=== PATIENT | male | born 1960 | race Caucasian/White ===

== ENCOUNTER 2017-05-30 11:43 | Inpatient (IN) | payer MEDICARE ==
[~2017-05-30] VITALS: Ht 185.4 cm; Wt 69.9 kg
[2017-05-30] VITALS (7 sets, daily range): BP systolic 122–154; BP diastolic 68–88
--- NOTE | ~2017-05-30 | CON ---
[place], [place] REPORT OF CONSULTATION NAME: TALITA REYNOLDS UNIT #: [id number] ROOM: 515 DOCTOR: SMITH RINGMEEDARRELL BIRTHDATE: [birth year] DOS: 05/30/2017 REQUESTING PHYSICIAN: Yovany Simon INDICATION: Chest pain. REASON FOR CONSULTATION: Chest pain. ASSESSMENT: 1. Current presentation with chest pain, sharp, left-sided. 2. Worsening chest pain with deep inspiration and position. 3. No relation to activity. No improvement with nitroglycerin patch. 4. Similar pleuritic chest pain 20 years ago. 5. Active tobacco abuse. 6. Unknown level of lipid. PLAN: 1. Cycle cardiac enzymes. 2. Check sed rate. 3. CRP. 4. Echocardiogram. 5. Stress test in a.m. 6. Toradol 50 mg 1 IV q. 12 hours x 2 doses only. 7. Indocin 25 mg b.i.d. for 2 doses. 8. Colchicine 0.6 mg daily. 9. Smoking cessation. HISTORY OF PRESENT ILLNESS: The patient is a pleasant 56-year-old gentleman unknown to our practice, was referred by Dr. Pedroza for further evaluation of complaint of chest pain. Apparently, the patient woke up with the chest pain, left-sided, sharp, radiating to the left arm, worse with lying completely flat and taking a deep breath. The patient presented after the pain lingered on all day. Finally, the patient's pain got worse with mainly with lying on his right side and presented to the Emergency Room. Nitroglycerin patch was put in and since then there is no change with the intensity of this pain. It is rated almost 7/10. This patient did have some nausea, but no vomiting or diaphoresis. Never had such complaint recently. He is active, able to walk few miles without any provoked cardiac complaints. Never had any symptomatic palpitation or any associated dizziness, lightheadedness or near syncope. No fever. No chills. No night sweats. No recent upper respiratory infection. He sleeps on one pillow with no reported PND, orthopnea or pedal edema. The patient maintains good appetite. No recent weight loss. PAST MEDICAL HISTORY: As detailed in my assessment. SOCIAL HISTORY: The patient continues to smoke, has been doing this for the past 37 years. No heavy alcohol. The patient admits to marijuana abuse. FAMILY HISTORY: The patient's father at age 65 of liver cancer. His mother is still alive at age 78. He has 2 brothers and 2 sisters with no [place], [place] REPORT OF CONSULTATION NAME: TALITA REYNOLDS UNIT #: [id number] ROOM: [facility] DOCTOR: VERN MTZ MD BIRTHDATE: [birth year] reported heart problems. CURRENT MEDICATIONS: [id number], Lovenox, Restoril, Zofran, Dulcolax, Sula, Tylenol, and aspirin. ALLERGIES: The patient has no known drug allergies. REVIEW OF SYSTEMS: Currently, the patient denies any headache, diplopia or blurry vision. No fever. No chills, No night sweats, No abdominal pain. No bright red blood per rectum or tarry stools. The patient admits to joint pain. No , muscular pain. No anxiety. No depression. No polyuria, No polydipsia. No skin rash. Review of all other systems has been negative. PHYSICAL EXAMINATION: GENERAL: The patient alert, oriented x 3, quite pleasant. VITAL SIGNS: Blood pressure 136/86, heart rate 69, respiratory rate of 16, temperature 97.4. HEENT: Extraocular muscle intact. Pupils equal, round, reactive to light. Conjunctivae: No pallor. Throat: No petechiae. NECK: Good carotid upstroke. Unable to appreciate any bruit. No lymphadenopathy. No thyromegaly. HEART: S1, S2 with a faint holosystolic murmur at the left upper sternal border. No rub or sternal heave. CHEST AND BACK: No deformities. LUNGS: Clear to auscultation. Good air movement. No wheezing or rales. ABDOMEN: Soft, nontender, present bowel sounds. No masses. No bruits. EXTREMITIES: Lower extremities, no edema with faint distal pulses. NEUROLOGIC: Grossly nonfocal. SKIN: No significant rash. LABORATORY DATA: White count 8.1, hemoglobin 15.3. Potassium is 3.7, GFR more than 60%, glucose 119. Normal liver function tests. Troponin less than 0.01. VERN MTZ MD CM:CONSTR:REPORT OF CONSULTATION 1735 05/31/17 1914 interface
--- NOTE | ~2017-05-30 | ST ---
[place], [place] EXERCISE STRESS TEST REPORT NAME: [facility]ALITA REYNOLDS [id number] UNIT #: [id number] ROOM: [facility] DOCTOR: VERN MTZ MD BIRTHDATE: [birth year] DOS: 05/31/2017 REQUESTING PHYSICIAN: Dr. Willams INDICATION: Chest pain. PROCEDURE: The patient was brought into the stress lab. The procedure was explained with risks, benefits, and alternatives. Lexiscan was injected. The patient tolerated procedure well. BLOOD PRESSURE RESPONSE: Resting blood pressure 128/82 with ending blood pressure 152/84. ELECTROCARDIOGRAM INTERPRETATION: Resting electrocardiogram showing normal sinus rhythm, heart rate of 83, RSR prime in V1 and V2 with criteria for left atrial enlargement. At the peak of the stress test, there was no evidence of any significant ST or T-wave changes suggestive of myocardial ischemia. No arrhythmias were noted. SUMMARY: 1. Adequate stress test. 2. Negative stress test for stress induced myocardial ischemia. 3. No arrhythmias were noted. 4. Myoview results will be reported separately. VERN MTZ MD CM:STRESS:EXERCISE STRESS TEST REPORT [id number] VERN MTZ MD
--- NOTE | ~2017-05-30 | PR ---
[place], [place] PROGRESS NOTE [id number] UNIT #: [id number] ROOM: 515 DOCTOR: VERN MTZ MD BIRTHDATE: [birth year] DOS: 05/31/2017 SUBJECTIVE: The patient is in the stress lab, just underwent a Lexiscan stress test. There appears significant improvement of this patient's chest pain with Toradol and Indocin. The patient has had significant recurrence this morning, but improved again with medication. No symptomatic palpitation. OBJECTIVE: VITAL SIGNS: Blood pressure 116/74, heart rate 73, respiration rate of 14, temperature 97.5. NECK: Good upstroke, no bruit. HEART: S1, S2 with no rub. LUNGS: Decreased air movement, but no wheezing, no rales. ABDOMEN: Soft, nontender, present bowel sounds. EXTREMITIES: Lower extremities, no edema. LABORATORY DATA: White count 6.3, hemoglobin 15.0. There is no left shift. Potassium 3.9, creatinine 0.7, GFR more than 60. Normal liver function tests. Troponin less than 0.015. C-reactive protein is 0.51. Normal thyroid function test. Sed rate reported . ASSESSMENT AND PLAN: Current presentation with chest pain that has some pleuritic component, even though we cannot rule out the possibility of coronary artery disease. The patient is a longtime smoker a stress test was performed this morning, we are awaiting the results. In the meantime, we will continue with Indocin/colchicine. I will check the echocardiogram and I plan to see the patient in 1 week as an outpatient. Indocin should be continued between 7-10 days only as an outpatient and colchicine will be considered for 3 months. The patient can be discharged if the nuclear images were within normal limits. VERN MTZ MD CM:PNJACQUE [id number] VERN MTZ MD 05/31/17 1915 interface
[~2017-05-30 11:43] MED LIST: VICODIN ES 7501 TAB PO
[2017-05-30 11:59] LABS: BASO % 0.4 % (0.0-1.0); EOS # 0.1 10*3/uL (0.0-0.4); EOS % 1.4 % (1.0-4.0); HEMATOCRIT 44.8 % (42.0-52.0); HEMOGLOBIN 15.3 g/dl (14.0-18.0); MEAN CELL VOLUME 93.7 fl (80.0-94.0); MEAN CORPUSCULAR HGB CONC 34.2 g/dl (33.0-37.0); MEAN PLATELET VOLUME 9.3 fl (9.6-12.3); MONO # 0.5 10*3/uL (0.1-1.0); MONO % 6.6 % (3.0-9.0); NEUT # 5.5 10*3/uL (2.3-7.9); NEUT % 67.2 % (47.0-73.0); PLATELET COUNT AUTOMATED 206 10*3/uL (130-400); RED BLOOD COUNT 4.78 10*6/uL (4.50-5.90); WHITE BLOOD COUNT 8.1 10*3/uL (4.8-10.8)
[2017-05-30 12:08] LABS: ACT PARTIAL THROMBO TIME 25.1 SECONDS (20.8-31.5)
--- NOTE | 2017-05-30 12:14 | NUR ---
PT RESTING NOW,VS ARE STABLE. HE HAS BEEN MEDICATED WITH TOPICAL NITRO PASTE FOR CO MID STERNAL CHEST PAIN. HORACIO DEVRIES
[2017-05-30 12:17] LABS: ALKALINE PHOSPHATASE 91 U/L (45-117); BUN 11 mg/dl (7-24); CHLORIDE 104 mmol/L (98-107); CREATININE 0.87 mg/dL (0.70-1.30); POTASSIUM 3.7 mmol/L (3.5-5.1); SGOT/AST 18 IU/L (3-35); SGPT/ALT 17 U/L (12-78); SODIUM 140 mmol/L (136-145)
[2017-05-30 12:20] LABS: TROPONIN I < 0.015 ng/ml (<0.045)
--- NOTE | 2017-05-30 12:59 | NUR ---
PT HAS NO RELIEF IN CHEST PAIN,NO RELIEF FROM NITRO PASTE. RATES PAIN AT A 7 NOW. NO DISTRESS NOTED. VS REMAIN STABLE. HORACIO DEVRIES
--- NOTE | 2017-05-30 14:30 | NUR ---
A 56, admitted to , under the services of PATI Griggs DO with a diagnosis of CHEST PAIN. Chief complaint is CHEST PAIN. Patient arrived via bed from ER. Monitor applied. Initial assessment completed. Vital signs taken and recorded. PATI GRIGGS DO notified of admission to the unit. Orders received. See assessment for past medical history, medications and allergies. Patient and/or family oriented to unit. [facility] visitation policy reviewed. Clothing/patient valuable form completed. DESHAWN NANCE
--- NOTE | 2017-05-30 15:39 | NUR ---
CALLED DR. FONTANA OFFICE THEY WILL NOTIFY HIM OF CONSULT.
--- NOTE | 2017-05-30 16:30 | NUR ---
PT RESTING IN BED STATES DOCTORS WHERE IN TO SEE HIM. AWARE STRESS TEST IN AM NO C/O AT THIS TIME. DENIES ANY NEED FOR ANY MEDICATIONS AT THIS TIME. CALL LIGHT IN REACH.
--- NOTE | 2017-05-30 17:56 | NUR ---
PT COMPLAINING OF MIDSTERNAL CHEST PAIN, RATES PAIN 7 ON PAIN SCALE 0-10. MEDICATED WITH TORADOL IV PER PRN ORDER, SEE EMAR. CALL LIGHT IN REACH.
--- NOTE | 2017-05-30 21:10 | NUR ---
PATIENT RESTING IN BED. STATES HIS MIDSTERNAL CHEST PAIN IS BETTER THAN IT WAS EARLIER. HE RATES IT A 3/10 AND SAYS EARLIER IT WAS A 7/10. HE IS PLEASANT/COOPERATIVE WITH CARE. CALL LIGHT IS IN REACH. WILL MONITOR.
[2017-05-31] VITALS: BP 117/58
--- NOTE | 2017-05-31 01:57 | NUR ---
PATIENT SLEEPING ON LEFT SIDE. RESPIRATIONS EASY/REG. NO SXS OF DISTRESS. CALL LIGHT IS IN REACH.
--- NOTE | 2017-05-31 02:54 | NUR ---
24 HOUR CHART CHECK COMPLETE
--- NOTE | 2017-05-31 04:12 | NUR ---
PATIENT SLEEPING ON RIGHT SIDE. RESPIRATIONS EASY/REG. NO SXS OF DISTRESS. CALL LIGHT IN REACH.
[2017-05-31 07:04] LABS: BASO % 0.3 % (0.0-1.0); EOS # 0.1 10*3/uL (0.0-0.4); EOS % 1.4 % (1.0-4.0); HEMATOCRIT 43.2 % (42.0-52.0); LYMPH # 1.6 10*3/uL (1.3-4.4); LYMPH % 25.7 % (27.0-41.0); MEAN CELL VOLUME 92.5 fl (80.0-94.0); MEAN CORPUSCULAR HGB 32.1 pg (27.0-31.0); MEAN CORPUSCULAR HGB CONC 34.7 g/dl (33.0-37.0); MEAN PLATELET VOLUME 9.7 fl (9.6-12.3); MONO # 0.6 10*3/uL (0.1-1.0); MONO % 8.7 % (3.0-9.0); NEUT % 63.7 % (47.0-73.0); PLATELET COUNT AUTOMATED 204 10*3/uL (130-400); RED BLOOD COUNT 4.67 10*6/uL (4.50-5.90); RED CELL DISTRI WIDTH 13.1 % (0-14.5); WHITE BLOOD COUNT 6.3 10*3/uL (4.8-10.8)
[2017-05-31 07:30] LABS: ALBUMIN 3.7 gm/dl (3.1-4.5); ALKALINE PHOSPHATASE 86 U/L (45-117); BUN 14 mg/dl (7-24); CHLORIDE 105 mmol/L (98-107); CHOLESTEROL 188 mg/dL (<200); CREATININE 0.71 mg/dL (0.70-1.30); HDL CHOLESTEROL 49 mg/dl (40-60); LDL CHOLESTEROL 122 mg/dL (9-159); POTASSIUM 3.9 mmol/L (3.5-5.1); SGOT/AST 21 IU/L (3-35); SGPT/ALT 17 U/L (12-78); SODIUM 138 mmol/L (136-145); TOTAL PROTEIN 7.5 gm/dL (6.4-8.2); TRIGLYCERIDES 83 mg/dl (<150); VLDL CHOLESTEROL 17 mg/dL (6-40)
[2017-05-31 07:31] LABS: FREE T4 1.18 ng/dl (0.76-1.46)
--- NOTE | 2017-05-31 07:43 | NUR ---
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
[2017-05-31 08:00] VITALS: BP 116/74
--- NOTE | 2017-05-31 08:15 | NUR ---
PT RESTING IN BED. RESP-EASY AND REGULAR. VISITORS AT HIS SIDE. C/O MIDSTERNAL CHEST PAIN, RATES PAIN 7 OR 8 ON PAIN SCALE 0-10. CALLED PHARMACY AND HAD TORADOL REPROFILED WAITING FOR MED. DENIES N/V. WAITING TO GO FOR STRESS TEST. CALL LIGHT IN REACH. SEE SHIFT ASSESSMENT.
[2017-05-31 08:27] LABS: VITAMIN D, 25-HYDROXY 24.5 ng/mL (30-100)
--- NOTE | 2017-05-31 08:42 | NUR ---
PT MEDICATED WITH TORADOL IV PER PRN ORDER, SEE EMAR. FOR C/O MIDSTERNAL CHEST PAIN RATES PAIN 7OR 8 ON PAIN SCALE 0-10. TRANSPORTER ON THE FLOOR TO ESCORT PT TO STRESS TEST VIA WHEELCHAIR. CALL LIGHT IN REACH. SEE SHIFT ASSESSMENT.
--- NOTE | 2017-05-31 09:30 | NUR ---
INFORMED CONSENT OBTAINED FOR LEXISCAN NUCLEAR STRESS TEST WITH DR. MTZ. RESTING EKG NSR WITH A RESTING HR OF 87 WITH BP OF 128/82. LUNGS WITH SCATTERED RHONCHI WITH SPO2 OF 98% ON ROOM AIR. PT COMPLETED A 1:00 LEXISCAN PROTOCOL RECEIVING LEXISCAN 0.4 MG IV OVER 10 SECONDS. HAD NO CHEST PAIN OR ANY EKG CHANGES. HAD C/O "WEIRD FEELING" AND HEADACHE THAT SUBSIDED IN RECOVERY. HAD A PEAK HR OF 102 WITH BP OF 152/84. LAST RECOVERY HR OF 102 WITH BP OF 152/78. AWAITING SCANNING IN STABLE CONDITION.
--- NOTE | 2017-05-31 11:38 | NUR ---
Ceramic Saw Tender in to talk to patient. Patient states lives at home with family. There are 18 steps in the home. Physician: No Family Physician Pharmacy: [facility]: no Patient's level of ADLs: INDEPENDENT Patient has working utilities: yes DME: none Follow-up physician's appointment after d/c: will be made by hospitalist nurse director upon discharge. Patient states after his stress test this morning he is going to follow-up with Dr. Isabel. Does patient want to access PORTAL?: no Discharge plan home. Patient lives at home with his , son, daughter, and grandson. He does not currently have a PCP but said he is going to follow-up with Dr. Isabel after his stress test this morning. JOSE C AGUIRRE
[2017-05-31 12:00] VITALS: BP 109/56
--- NOTE | 2017-05-31 12:00 | NUR ---
PT RESTING IN BED. NO C/O AT THIS TIME. STATES HE IS READY TO GO HOME. CALL LIGHT IN REACH.
--- NOTE | 2017-05-31 13:45 | NUR ---
TOLERATED ROUTINE MEDS WITH NO PROBLEM. NO C/O AT THIS TIME. CALL LIGHT IN REACH.
[2017-05-31] MEDS ORDERED: COLCHICINE0.6 M1 PO (13:57)
[2017-05-31] MEDS ORDERED: INDOMETHACIN25 M1 PO (13:57)
[2017-05-31] MEDS ORDERED: VITAMIN D31000 UNI1 PO (13:59)
--- NOTE | 2017-05-31 14:51 | NUR ---
PT AMBULATORY OFF THE FLO0R WITH VISITOR AT HIS SIDE. HEPLOCK REMOVED 2X2 APPLIED. MONITOR REMOVED.
== END 2017-05-31 14:50 | disposition home or self-care (01) | DRG 316 ==
LOC: ED 11:43 → 5E 13:14 → EDHOLD 13:14 → 5E 13:29
PROVIDERS: Emergency Medicine; Student in an Organized Health Care Education/Training Program; ADMIT Internal Medicine
DX: I31.9 Disease of pericardium, unspecified (principal); F12.10 Cannabis abuse, uncomplicated; J44.9 Chronic obstructive pulmonary disease, unspecified; R73.9 Hyperglycemia, unspecified; M94.0 Chondrocostal junction syndrome [Tietze]; K21.9 Gastro-esophageal reflux disease without esophagitis; R61 Generalized hyperhidrosis; F17.210 Nicotine dependence, cigarettes, uncomplicated; G25.0 Essential tremor; Z71.6 Tobacco abuse counseling; Z79.82 Long term (current) use of aspirin; Z79.899 Other long term (current) drug therapy; Z82.49 Family history of ischemic heart disease and other diseases of the circulatory system; Z83.3 Family history of diabetes mellitus; Z80.8 Family history of malignant neoplasm of other organs or systems

== ENCOUNTER 2021-07-20 09:44 | Emergency (ER) | payer MEDICARE ==
[~2021-07-20] VITALS: Ht 185.4 cm; Wt 79.4 kg
[~2021-07-20 09:44] MED LIST changes: +COLCHICINE0.6 M1 PO; +INDOMETHACIN25 M1 PO; +VITAMIN D31000 UNI1 PO
[2021-07-20 10:25] LABS: BILIRUBIN Negative (Negative); BLOOD Negative (Negative); CLARITY Clear (Clear); COLOR Yellow (Yellow); GLUCOSE Negative (Negative); KETONE Negative (Negative); LEUKO ESTERASE Negative (Negative); NITRITE Negative (Negative); PH 5.5 (4.5-8.0); SPECIFIC GRAVITY 1.015 (1.001-1.030); UROBILINOGEN 0.2 E.U./dl (0.0-1.0)
[2021-07-20 10:41] LABS: MUCOUS TRACE; WBC 0-2 wbc/hpf (0-5)
[2021-07-20 11:01] LABS: BASO % 0.4 % (0.0-1.0); EOS # 0.1 10*3/uL (0.0-0.4); EOS % 1.1 % (1.0-4.0); HEMATOCRIT 46.5 % (42.0-52.0); LYMPH # 1.7 10*3/uL (1.3-4.4); LYMPH % 20.1 % (27.0-41.0); MEAN CELL VOLUME 92.6 fl (80.0-94.0); MEAN CORPUSCULAR HGB 31.1 pg (27.0-31.0); MEAN CORPUSCULAR HGB CONC 33.5 g/dl (33.0-37.0); MEAN PLATELET VOLUME 9.5 fl (9.6-12.3); MONO # 0.8 10*3/uL (0.1-1.0); MONO % 9.5 % (3.0-9.0); NEUT # 5.6 10*3/uL (2.3-7.9); NEUT % 68.3 % (47.0-73.0); PLATELET COUNT AUTOMATED 233 10*3/uL (130-400); RED BLOOD COUNT 5.02 10*6/uL (4.50-5.90); RED CELL DISTRI WIDTH 12.5 % (0-14.5); WHITE BLOOD COUNT 8.2 10*3/uL (4.8-10.8)
[2021-07-20 11:20] LABS: ALBUMIN 3.6 gm/dl (3.1-4.5); BUN 10 mg/dl (7-24); CHLORIDE 104 mmol/L (98-107); CREATININE 0.87 mg/dL (0.70-1.30); LIPASE 61 U/L (73-393); POTASSIUM 4.1 mmol/L (3.5-5.1); SGOT/AST 23 IU/L (3-35); SGPT/ALT 17 U/L (12-78); SODIUM 138 mmol/L (136-145)
[2021-07-20 11:27] LABS: ALKALINE PHOSPHATASE 98 U/L (45-117)
[2021-07-20] MEDS ORDERED: METRONIDAZOLE500 M1 PO (14:48)
[2021-07-20] MEDS ORDERED: CIPRO500 MG PO (14:48)
== END 2021-07-20 14:52 | disposition home or self-care (01) ==
LOC: ED 09:44
PROVIDERS: Emergency Medicine
DX: K57.32 Diverticulitis of large intestine without perforation or abscess without bleeding (principal); Z87.442 Personal history of urinary calculi; Z98.890 Other specified postprocedural states

== ENCOUNTER 2022-07-30 07:38 | Emergency (ER) | payer MEDICARE ==
[~2022-07-30] VITALS: Ht 185.4 cm; Wt 63.5 kg
[~2022-07-30 07:38] MED LIST changes: +CIPRO500 MG PO; +METRONIDAZOLE500 M1 PO
[2022-07-30 08:15] LABS: BASO % 0.3 % (0.0-1.0); EOS # 0.1 10*3/uL (0.0-0.4); EOS % 0.6 % (1.0-4.0); HEMATOCRIT 42.6 % (42.0-52.0); MEAN CELL VOLUME 89.5 fl (80.0-94.0); MEAN CORPUSCULAR HGB 29.4 pg (27.0-31.0); MEAN CORPUSCULAR HGB CONC 32.9 g/dl (33.0-37.0); MEAN PLATELET VOLUME 9.1 fl (9.6-12.3); MONO # 1.2 10*3/uL (0.1-1.0); MONO % 11.4 % (3.0-9.0); NEUT % 76.9 % (47.0-73.0); PLATELET COUNT AUTOMATED 320 10*3/uL (130-400); RED BLOOD COUNT 4.76 10*6/uL (4.50-5.90); RED CELL DISTRI WIDTH 13.2 % (0-14.5); WHITE BLOOD COUNT 10.4 10*3/uL (4.8-10.8)
[2022-07-30 08:26] LABS: ACT PARTIAL THROMBO TIME 27.6 SECONDS (20.0-32.1); INTERNATIONAL NORM RATIO 1.1 (2.0-3.5)
[2022-07-30 08:33] LABS: ALKALINE PHOSPHATASE 174 U/L (46-116); BUN 11 mg/dl (9-23); CHLORIDE 93 mmol/L (98-107); POTASSIUM 3.4 mmol/L (3.4-5.1); SGPT/ALT 25 U/L (10-49); TOTAL PROTEIN 7.6 gm/dL (6.0-8.0)
[2022-07-30] MEDS ORDERED: ONDANSETRON4 MG SL (10:53)
[2022-07-30] MEDS ORDERED: OMEPRAZOLE40 MG PO (10:53)
== END 2022-07-30 10:53 | disposition home or self-care (01) ==
LOC: ED 07:38
PROVIDERS: Internal Medicine
DX: R11.2 Nausea with vomiting, unspecified (principal); Z90.49 Acquired absence of other specified parts of digestive tract; Z87.891 Personal history of nicotine dependence; Z79.899 Other long term (current) drug therapy

== ENCOUNTER 2022-08-07 06:29 | Emergency (ER) | payer MEDICARE ==
[~2022-08-07] VITALS: Ht 182.8 cm; Wt 63.5 kg
[~2022-08-07 06:29] MED LIST changes: +OMEPRAZOLE40 MG PO; +ONDANSETRON4 MG SL
[2022-08-07 07:24] LABS: BASO % 0.2 % (0.0-1.0); EOS # 0.1 10*3/uL (0.0-0.4); EOS % 0.5 % (1.0-4.0); HEMATOCRIT 46.5 % (42.0-52.0); LYMPH # 1.1 10*3/uL (1.3-4.4); LYMPH % 11.5 % (27.0-41.0); MEAN CELL VOLUME 87.9 fl (80.0-94.0); MEAN CORPUSCULAR HGB 29.7 pg (27.0-31.0); MEAN CORPUSCULAR HGB CONC 33.8 g/dl (33.0-37.0); MEAN PLATELET VOLUME 9.7 fl (9.6-12.3); MONO # 1.1 10*3/uL (0.1-1.0); MONO % 11.4 % (3.0-9.0); NEUT # 7.1 10*3/uL (2.3-7.9); PLATELET COUNT AUTOMATED 287 10*3/uL (130-400); RED BLOOD COUNT 5.29 10*6/uL (4.50-5.90); RED CELL DISTRI WIDTH 13.1 % (0-14.5); WHITE BLOOD COUNT 9.3 10*3/uL (4.8-10.8)
[2022-08-07 07:44] LABS: ALKALINE PHOSPHATASE 113 U/L (46-116); BUN 11 mg/dl (9-23); CHLORIDE 97 mmol/L (98-107); POTASSIUM 3.6 mmol/L (3.4-5.1); SGPT/ALT 10 U/L (10-49); TOTAL PROTEIN 7.9 gm/dL (6.0-8.0)
== END 2022-08-07 11:41 | disposition short-term general hospital (02) ==
LOC: ED 06:29
PROVIDERS: Student in an Organized Health Care Education/Training Program
DX: C34.90 Malignant neoplasm of unspecified part of unspecified bronchus or lung (principal); C79.31 Secondary malignant neoplasm of brain; Z90.49 Acquired absence of other specified parts of digestive tract; F12.90 Cannabis use, unspecified, uncomplicated; I21.9 Acute myocardial infarction, unspecified